=== PATIENT | male | born 1960 | race Caucasian/White ===

== ENCOUNTER 2024-09-07 13:55 | Outpatient (CLI) | payer OTHER, SELFPAY ==
--- NOTE | ~2024-09-07 | XR_ITS ---
XR hand RT min 3V Ordering provider: Aditya Vela, History: . Pain in rt hand, NKI . Comparison: None. FINDINGS: BONES: No acute fracture or dislocation. Minimal subluxation of the first metacarpophalangeal joint i s seen. JOINT SPACES: Osteoarthritic changes of the 6 first metacarpophalangeal joint. SOFT TISSUES: Normal. IMPRESSION: No acute osseous abnormality right hand. Reviewed, dictated and finalized at location A.
--- OUTSIDE RECORDS SUMMARY | 2024-09-07 14:09 | XMS_ITS | Patient Health Record ---
Author Organization [facility] Address [address] [facility] [address] [place] [address] Care Team Providers Care Evaporator Operator Name Role Phone BRUCE QUINTANILLA Unavailable [phone] CYRIL BUSTILLO MD Unavailable Unavailable Reason For Referral No Information Medications Medication SIG (Take, Route, Fr equency, Duration) Notes Start Date End Date Status Naproxen 500 MG 1 tablet Oral Twice a day for 30 days Active Immunizations Vaccine Route Administration Date Status Comme nts Influenza (whole) Unknown 01/17/2018 Refused Influenza (whole) Unknown 03/01/2018 Refused Pneumococcal Unknown 01/17/2018 Refused Pneumococcal Unknown 03/01/2018 Refused Social History Tobacco Use: Social History Observation Description Date Details (start date - stop date) Current Smoker NA - NA Tobacco Use/Smoking Question Answer Notes Patient is a current smoker How often do you smoke cigarettes? every day How many cigarettes a day do you smoke? 6-10 Alcohol Screen Question Answer Notes Did you have a drink contain ing alcohol in the past year? Yes How often did you have a dri nk containing alcohol in the past year? 2 to 4 times a month (2 points) How many drinks did you have on a typical day when you were drinking in the past year? 1 or 2 drinks (0 point) How often did you have 6 or more drinks on one occasion in the past year? Never (0 point) Points 2 Interpretation Negative Problems Problem Type SNOMED Code ICD Code Onset Dates Problem Status W/U Status Risk Notes Problem Osteoarthritis of knee (149337787) Unilateral primary osteoarthritis , left knee (M17.12) Active confirmed Problem Pain in left knee (058576972311148) Pain in left knee (M25.562) Active confirmed Plan Of Treatment No Information Insurance Providers Payer Name Payer Address Payer Phone Subscriber Number Group Number Insured Name Patient Relationship to Insured Coverage Start Date Coverage End Date [facility] [address] [place] [address] [id number] RAY JOAQUIN Self - patient is the insured Medical (General) History Medical History History ICD Code acid reflux
--- OUTSIDE RECORDS SUMMARY | 2024-09-07 14:09 | XMS_ITS | Clinical Summary ---
Author Organization [facility] Address [address] [place] [address] Care Team Providers Care Die Repairer Trimmer Dies Name Role Phone Aditya Vela MD Primary Care Provider Source Comments [facility],non-owned Affiliates and Associated Physician Practices is amultiple site organization consisting of ambulatory clinics and hospital sitesin [place], [place], [place] and [place]. This disclosure is being madepursuant to the Care Everywhere program and may not contain all information available regarding this patient. Last updated 18.[facility] Allergies No known active allergies Medications * Be aware that medications may not be up to date on this document. Alwaysverify current medications with the patient. Medication Sig Dispensed Refills Start Date End Date Status metoprolol tartrate (LOPRESSOR) 25 MG tablet Take 0.5 (one-half) tablet by mouth 2 times daily 30 tablet 06/23/2020 Active Active Problems No known active problems Social History Tobacco Use Types Packs/Day Years Used Date Smoking Tobacco: Every Day Cigarettes Smokeless Tobacco: Never Alcohol Use Standard Drinks/Week Comments Yes 0 (1 standard drink = 0.6 oz pur e alcohol) 2 beers daily Sex and Gender Information Value Date Recorded Sex Assigned at Not on file Gender Identity Not on file Sexual Orientation Not on file Last Filed Vital Signs Vital Sign Reading Time Taken Comments Blood Pressure 150/88 07/15/2020 1:46 PM VACUUM CLEANER REPAIRER Pulse 72 07/15/2020 1:46 PM VACUUM CLEANER REPAIRER Temperature 36.2 C (97.2 F) 07/15/2020 1:46 PM VACUUM CLEANER REPAIRER Respiratory Rate 18 07/15/2020 1:46 PM VACUUM CLEANER REPAIRER Oxygen Saturation 96% 07/15/2020 1:46 PM VACUUM CLEANER REPAIRER Inhaled Oxygen Concentration 21% 06/23/2020 9 :15 PM VACUUM CLEANER REPAIRER Weight 97.9 kg (215 lb 12.8 oz) 07/15/2020 1:46 PM VACUUM CLEANER REPAIRER Height 185.4 cm (6' 1 ) 07/15/2020 1:46 PM VACUUM CLEANER REPAIRER Body Mass Index 28.47 07/15/2020 1:46 PM VACUUM CLEANER REPAIRER Plan of Treatment Health Maintenance Due Date Last Done Comments COLOGUARD (AGES 45-75) - COL ON CA SCREENING 1960 COLON MONITORING 1960 COLONOSCOPY - COLON CA SCREENING 1960 CT COLONOGRAPHY - COLON CA SCREENING 1960 Colorectal Cancer Screening 1960 FIT - COLON CA SCREENING 1960 FLEX SIG - COLON CA SCREENING 1960 LIPID TESTING 1960 DTAP/TDAP/TD VACCINES (1 - Tdap) 1979 PNEUMOCOCCAL VACCINE (1 of 2 - PCV) 1979 PNEUMOCOCCAL VACCINE 50+ (1 of 1 - PCV) 2010 ZOSTER VACCINE (1 of 2) 2010 SCREENING FOR DIABETES 06/23/2023 06/23/2020 COVID-19 VACCINE (1 - 2023-2 5 season) 2024 DEPRESSION SCREENING 05/30/2024 INFLUENZA VACCINE (Season Ended) 2025 Respiratory Syncytial Virus (RSV) Vaccine Pt: or over 60 yrs (1 - 1-dose 75+ series) 2035 HEPATITIS C SCREENING Completed 06/23/2020 , 06/23/2020 HIV SCREENING Completed 06/23/2020 HEPATITIS B VACCINE Aged Out No longe r eligible based on patient's age to complete this topic HIB VACCINE Aged Out No longer eligi ble based on patient's age to complete this topic HPV VACCINE Aged Out No longer eligi ble based on patient's age to complete this topic MENINGOCOCCAL (Group B) VACCINE SHARED DECISION-MAKING Aged Out No longer eligible based on patient's age to complete this topic MENINGOCOCCAL GROUPS A/C/Y/W VACCINE Aged Out No longer eligible b ased on patient's age to complete this topic Procedures Procedure Name Priority Date/Time Associated Diagnosis Comments COMPREHENSIVE METABOLIC PANEL STAT 06/23/2020 5:32 PM VACUUM CLEANER REPAIRER HEPATITIS C AB SCREEN RFLX NAAT QUANT STAT 06/23/2020 5:32 PM VACUUM CLEANER REPAIRER HIV-1 HIV-2 ANTIGEN/ANTIBODY STAT 06/23/2020 5:32 PM VACUUM CLEANER REPAIRER from Last 3 Months or Most Recently Relevant to Health Maintenance Results * HIV-1 HIV-2 ANTIGEN/ANTIBODY (06/23/2020 5:32 PM VACUUM CLEANER REPAIRER) Pathologist [facility] HIV Antigen/Antibod y 1 & 2 Non-reacti ve Non-react stephany 06/23/2020 9:09 PM VACUUM CLEANER REPAIRER [facility] Comment:Neither HIV-1 p24 An tigen nor HIV-1/HIV-2 Antibodies are detected. Blood BLOOD SPECIMEN / Unknown Venipuncture / Unknown 06/23/2020 5:32 PM VACUUM CLEANER REPAIRER 06/23/2020 9:09 PM VACUUM CLEANER REPAIRER Abdi Arenas MD LAB - HEMATOLOGY [place] [address] [address], [facility] [phone] * (ABNORMAL) HEPATITIS C AB SCREEN RFLX NAAT QUANT (06/23/2020 5:32 PM VACUUM CLEANER REPAIRER) Pathologist [facility] Hepatitis C Antibody Reactive( A) Non-react stephany 06/23/2020 9:09 PM VACUUM CLEANER REPAIRER [facility] Comment:Serum for supplement al Hepatitis C quantitative RNA PCR testing will be reflexively sent out by the lab. Blood BLOOD SPECIMEN / Unknown Venipuncture / Unknown 06/23/2020 5:32 PM VACUUM CLEANER REPAIRER 06/23/2020 9:09 PM VACUUM CLEANER REPAIRER Abdi Arenas MD LAB - CHEMISTRY [facility] [address] [place] [address], [facility] [phone] * COMPREHENSIVE METABOLIC PANEL (06/23/2020 5:32 PM [facility]) BUN 9 7 - 26 mg/dL 06/23/2020 6:44 PM [facility] Creatinine 0.9 0.6 - 1.2 mg/dL 06/23/2020 6:44 PM [facility] Sodium 140 136 - 145 mmol/L 06/23/2020 6:44 PM [facility] Potassium 3.9 3.5 - 4.5 mmol/L 06/23/2020 6:44 PM [facility] Chloride 103 98 - 107 mmol/L 06/23/2020 6:44 PM [facility] CO2 25 22 - 29 mmol/L 06/23/2020 6:44 PM [facility] Glucose 100 70 - 115 mg/dL 06/23/2020 6:44 PM [facility] Calcium 8.6 8.4 - 10.2 mg/dL 06/23/2020 6:44 PM [facility] Protein Total 6.8 6.0 - 8.3 g/dL 06/23/2020 6:44 PM [facility] Albumin 3.9 3.4 - 5.0 g/dL 06/23/2020 6:44 PM [facility] Bilirubin Total 0.7 0.2 - 1.2 mg/dL 06/23/2020 6:44 PM [facility] Alkaline Phosphatase 66 40 - 150 Units/L 06/23/2020 6:44 PM [facility] ALT 18 0 - 55 Units/L 06/23/2020 6:44 PM [facility] AST 31 5 - 34 Units/L 06/23/2020 6:44 PM [facility] Anion Gap 16 8 - 18 06/23/2020 6:44 PM [facility] BUN/Creatinine Ratio 10 7 - 23 06/23/2020 6:44 PM [facility] Osmolality Calculated 289 270 - 300 mOsm/kg 06/23/2020 6:44 PM [facility] Albumin/Globulin Ratio 1.3 1.1 - 2.3 06/23/2020 6:44 PM VACUUM CLEANER REPAIRER [facility] eGFR >60 >60 mL/min/1.7 3 m2 06/23/2020 6:44 PM VACUUM CLEANER REPAIRER [facility] Blood BLOOD SPECIMEN / Unknown Venipuncture / Unknown 06/23/2020 5:32 PM VACUUM CLEANER REPAIRER 06/23/2020 5:43 PM VACUUM CLEANER REPAIRER Abdi Arenas MD LAB - CHEMISTRY [facility] Organization Address City/State/ZIP Co de Phone Number [facility] [address] [place] [address], [facility] [phone] from Last 3 Months or Most Recently Relevant to Health Maintenance Care Teams Die Repairer Trimmer Dies Relationship Specialty Start Date End Date Aditya Vela MD PCP - General Internal Medicine 06/23/20
--- OUTSIDE RECORDS SUMMARY | 2024-09-07 14:09 | XMS_ITS | Data Portability ---
Author Organization [facility] [place] Address [address] [facility] [place] [address] Care Team Providers Care Installers Mechanical Name Role Phone ADITYA VELA Primary Care Provider [phone] Assessment Encounter Date Assessment Date Assessment LastModified by Organization Details LastModified Time 02/08/2024 02/08/2024 smoking cessation discussed healthy lifestyle care instructions for overweight discussed Cologuard ordered continue current therapy CBC CMP lipid PSA follow up 6 months. [email or web address] Not available 02/12/2024 16:32:08 Plan of Treatment Reminders Order Date Submit Date Provider Last Modified By Organization Details Last Modified Time Details Appointments ANY 15 2024 11:30A Lisa Vela MD Not available Not available Not available ANY 15 2024 11:30A Lisa Vela MD Not available Not available Not available Lab lipid panel, serum 2023 [facility], [facility] [facility], [place], [address], 02/09/2024 08:33:43 CMP, serum or plasma 2023 024 [facility], [address] [facility], [place], [address], 02/09/2024 08:33:44 CBC w/ auto diff 2023 024 [facility], [address] [facility], [place], [address], 02/09/2024 08:33:45 noninvasi ve colorecta l cancer DNA + occult blood screening , QL, stool 2023 024 [facility] [employer] (Cologuard Orders Only), [address], [place], [address], 08/31/2024 13:16:38 Referral None recorded. Procedures None recorded. Surgeries None recorded. Imaging None recorded. Medication Orders None recorded. Patient TargetsNo targets recorded. Patient Instructions Encounter Date Encounter Id Patient Instructions Last Modified By Organization Details Last Modified Time 02/08/2024 [id number] A healthy lifestyle: care instructions [email or web address] Not available 02/08/2024 18:28:30 Reason for Referral None Reported. Results Created Date Observation Date Name Description Value Unit Range Abnormal Flag Note LastModifiedBy Organization Detail LastModifiedTime 02/08/2002/09/2024 LIPID PANEL cholesterol, total 252 mg/dL 100-19 9 above high normal Not Available [facility] ([facility]) [address] [place], [address], 02/09/2024 08:33:43 02/08/20 24 02/09/2024 LIPID PANEL triglyceride s 137 mg/dL 0-149 Not Available [facility] ([facility]) [address] [place], [address], 02/09/2024 08:33:43 02/08/20 24 02/09/2024 LIPID PANEL HDL cholesterol 46 mg/dL >39 Not Available [facility] ([facility]) [address] [place], [address], 02/09/2024 08:33:43 02/08/20 24 02/09/2024 LIPID PANEL VLDL cholesterol mendez 25 mg/dL 5-40 Not Available [facility] ([facility]) [address] [place], [address], 02/09/2024 08:33:43 02/08/20 24 02/09/2024 LIPID PANEL LDL chol calc ([facility]) 181 mg/dL 0-99 above high normal Not Available [facility] ([facility]) [address], [place], [address], 02/09/2024 08:33:43 02/08/20 24 02/09/2024 COMP. METAB OLIC PANEL (14) glucose 94 mg/dL 70-99 Not Available [facility] ([facility]) [address] [place], [address], 02/09/2024 08:33:44 02/08/20 24 02/09/2024 COMP. METAB OLIC PANEL (14) BUN 12 mg/dL 8-27 Not Available [facility] ([facility]) [address] [place], [address], 02/09/2024 08:33:44 02/08/20 24 02/09/2024 COMP. METAB OLIC PANEL (14) creatinine 0.90 mg/dL 0.76-1 .27 Not Available [facility] ([facility]) [address] [facility], [place], [address], 02/09/2024 08:33:44 02/08/20 24 02/09/2024 COMP. METAB OLIC PANEL (14) eGFR 96 mL/mi n/1.7 3 >59 Not Available [facility] ([facility]) [address] [place], [address], 02/09/2024 08:33:44 02/08/20 24 02/09/2024 COMP. METAB OLIC PANEL (14) BUN/creatini ne ratio 13 10-24 Not Available [facility] ([facility]) [address] [place], [address], 02/09/2024 08:33:44 02/08/20 24 02/09/2024 COMP. METAB OLIC PANEL (14) sodium 141 mmol/ L 134-14 4 Not Available [facility] ([facility]) [address] [place], [address], 02/09/2024 08:33:44 02/08/20 24 02/09/2024 COMP. METAB OLIC PANEL (14) potassium 5.0 mmol/ L 3.5-5. 2 Not Available [facility] ([facility]) [address] [place], [address], 02/09/2024 08:33:44 02/08/20 24 02/09/2024 COMP. METAB OLIC PANEL (14) chloride 101 mmol/ L 96-106 Not Available [facility] ([facility]) [address] [facility], [place], [address], 02/09/2024 08:33:44 02/08/20 24 02/09/2024 COMP. METAB OLIC PANEL (14) carbon dioxide, total 26 mmol/ L 20-29 Not Available [facility] ([facility]) [address] [facility], [place], [address], 02/09/2024 08:33:44 02/08/20 24 02/09/2024 COMP. METAB OLIC PANEL (14) calcium 9.6 mg/dL 8.6-10 .2 Not Available [facility] ([facility]) [address] [facility], [place], [address], 02/09/2024 08:33:44 02/08/20 24 02/09/2024 COMP. METAB OLIC PANEL (14) protein, total 6.8 g/dL 6.0-8. 5 Not Available [facility] ([facility]) [address] [place], [address], 02/09/2024 08:33:44 02/08/20 24 02/09/2024 COMP. METAB OLIC PANEL (14) albumin 4.2 g/dL 3.9-4. 9 Not Available [facility] ([facility]) [address] [facility], [place], [address], 02/09/2024 08:33:44 02/08/20 24 02/09/2024 COMP. METAB OLIC PANEL (14) globulin, total 2.6 g/dL 1.5-4. 5 Not Available [facility] ([facility]) [address] [place], [address], 02/09/2024 08:33:44 02/08/20 24 02/09/2024 COMP. METAB OLIC PANEL (14) bilirubin, total 0.7 mg/dL 0.0-1. 2 Not Available [facility] ([facility]) [address] [facility], [place], [address], 02/09/2024 08:33:44 02/08/20 24 02/09/2024 COMP. METAB OLIC PANEL (14) alkaline phosphatase 62 IU/L 44-121 Not Available [facility] ([facility]) [address] [facility], [place], [address], 02/09/2024 08:33:44 02/08/20 24 02/09/2024 COMP. METAB OLIC PANEL (14) AST (SGOT) 38 IU/L 0-40 Not Available [facility] ([facility]) [address] [place], [address], 02/09/2024 08:33:44 02/08/20 24 02/09/2024 COMP. METAB OLIC PANEL (14) ALT (SGPT) 39 IU/L 0-44 Not Available [facility] ([facility]) [address] [place], [address], 02/09/2024 08:33:44 02/08/20 24 02/09/2024 CBC WITH DIFFE RENTI AL/PL ATELE T WBC 9.3 x10e3 /uL 3.4-10 .8 Not Available [facility] ([facility]) [address] [place], [address], 02/09/2024 08:33:45 02/08/20 24 02/09/2024 CBC WITH DIFFE RENTI AL/PL ATELE T RBC 4.97 x10e6 /uL 4.14-5 .80 Not Available [facility] ([facility]) [address] [place], [address], 02/09/2024 08:33:45 02/08/20 24 02/09/2024 CBC WITH DIFFE RENTI AL/PL ATELE T hemoglobin 17.2 g/dL 13.0-1 7.7 Not Available [facility] ([facility]) [address] [place], [address], 02/09/2024 08:33:45 02/08/2002/09/2024 CBC WITH DIFFE RENTI AL/PL ATELE T hematocrit 51.7 % 37.5-5 1.0 above high normal Not Available [facility] ([facility]) [address] [place], [address], 02/09/2024 08:33:45 02/08/2002/09/2024 CBC WITH DIFFE RENTI AL/PL ATELE T MCV 104 fL 79-97 above high normal Not Available [facility] ([facility]) [address] [place], [address], 02/09/2024 08:33:45 02/08/2002/09/2024 CBC WITH DIFFE RENTI AL/PL ATELE T MCH 34.6 pg 26.6-3 3.0 above high normal Not Available [facility] ([facility]) [address] [place], [address], 02/09/2024 08:33:45 02/08/2002/09/2024 CBC WITH DIFFE RENTI AL/PL ATELE T MCHC 33.3 g/dL 31.5-3 5.7 Not Available [facility] ([facility]) [address] [place], [address], 02/09/2024 08:33:45 02/08/20 24 02/09/2024 CBC WITH DIFFE RENTI AL/PL ATELE T RDW 12.7 % 11.6-1 5.4 Not Available [facility] ([facility]) [address] [facility], [place], [address], 02/09/2024 08:33:45 02/08/20 24 02/09/2024 CBC WITH DIFFE RENTI AL/PL ATELE T platelets 190 x10e3 /uL 150-45 0 Not Available [facility] ([facility]) [address] [facility], [place], [address], 02/09/2024 08:33:45 02/08/20 24 02/09/2024 CBC WITH DIFFE RENTI AL/PL ATELE T neutrophils 61 % notest ab. Not Available [facility] ([facility]) [address] [facility], [place], [address], 02/09/2024 08:33:45 02/08/20 24 02/09/2024 CBC WITH DIFFE RENTI AL/PL ATELE T lymphs 26 % notest ab. Not Available [facility] ([facility]) [address] [facility], [place], [address], 02/09/2024 08:33:45 02/08/20 24 02/09/2024 CBC WITH DIFFE RENTI AL/PL ATELE T monocytes 10 % notest ab. Not Available [facility] ([facility]) [address] [facility], [place], [address], 02/09/2024 08:33:45 02/08/20 24 02/09/2024 CBC WITH DIFFE RENTI AL/PL ATELE T eos 2 % notest ab. Not Available [facility] ([facility]) [address] [facility], [place], [address], 02/09/2024 08:33:45 02/08/20 24 02/09/2024 CBC WITH DIFFE RENTI AL/PL ATELE T basos 1 % notest ab. Not Available [facility] ([facility]) [address] [facility], [place], [address], 02/09/2024 08:33:45 02/08/20 24 02/09/2024 CBC WITH DIFFE RENTI AL/PL ATELE T neutrophils (absolute) 5.5 x10e3 /uL 1.4-7. 0 Not Available [facility] ([facility]) [address] [facility], [place], [address], 02/09/2024 08:33:45 02/08/20 24 02/09/2024 CBC WITH DIFFE RENTI AL/PL ATELE T lymphs (absolute) 2.4 x10e3 /uL 0.7-3. 1 Not Available [facility] ([facility]) [address] [facility], [place], [address], 02/09/2024 08:33:45 02/08/20 24 02/09/2024 CBC WITH DIFFE RENTI AL/PL ATELE T monocytes(ab solute) 0.9 x10e3 /uL 0.1-0. 9 Not Available [facility] ([facility]) [address] [facility], [place], [address], 02/09/2024 08:33:45 02/08/20 24 02/09/2024 CBC WITH DIFFE RENTI AL/PL ATELE T eos (absolute) 0.2 x10e3 /uL 0.0-0. 4 Not Available [facility] ([facility]) [address] [facility], [place], [address], 02/09/2024 08:33:45 02/08/20 24 02/09/2024 CBC WITH DIFFE RENTI AL/PL ATELE T baso (absolute) 0.1 x10e3 /uL 0.0-0. 2 Not Available [facility] ([facility]) [address] [facility], [place], [address], 02/09/2024 08:33:45 02/08/20 24 02/09/2024 CBC WITH DIFFE RENTI AL/PL ATELE T immature granulocytes 0 % notest ab. Not Available [facility] ([facility]) [address] [facility], [place], [address], 02/09/2024 08:33:45 02/08/20 24 02/09/2024 CBC WITH DIFFE RENTI AL/PL ATELE T immature grans (abs) 0.0 x10e3 /uL 0.0-0. 1 Not Available [facility] ([facility]) [address] [facility], [place], [address], 02/09/2024 08:33:45 Result Notes None recorded. Problems Name Problem SNOMED Code Status Onset Date Resolution Date Notes Provider Name and Address Organization Details Recorded Time Overweight 946925464 Active 2023 PATSY Whitehead, [facility] 4 16:17:31 Essential hypertension 12006902 Active 2023 PATSY Whitehead, [facility] 4 16:17:32 Screening for malignant neoplasm of colon [facility] 16:17[facility]33 Problem Notes None recorded. Procedures Surgical History Date Name Laterality Status Provider Name and Address Organization Details Recorded Time 3 hernia repair completed Laxmi Wen MA [facility] 02/08/2024 15:24:42 total knee replacement completed Laxmi Wen MA [facility] 02/08/2024 15:25:26 Imaging Results None recorded. Procedure Notes None recorded. Medical Equipment None Reported. Allergies No known drug allergies Medications Name Sig Start Date Stop Date Status Note LastModified by Organization Details LastModified Time atorvastatin 10 mg tablet Take 1 tablet every day by oral route. 09/07 completed Not Available Not Available Not Available metoprolol succinate ER 50 mg tablet,extend ed release 24 hr TAKE 1 TABLET BY MOUTH EVERY DAY active Not Available Not Available No t Available acetaminophen 300 mg-codeine 15 mg tablet TAKE 1 TABLET EVERY 6 HOURS NEEDED FOR PAIN 09/07 completed Not Available Not Available Not Available amoxicillin 875 mg-potassium clavulanate 125 mg tablet TAKE 1 TABLET BY MOUTH TWICE A DAY FOR 7 DAYS 09/07 completed Not Available Not Available Not Available amlodipine 09/07 completed Not Available Not Available Not Available Vitals Date Recorded Body height Body mass index (BMI) Body weight Heart rate Oxygen saturation Oxygen saturation in Arterial blood by Pulse oximetry Systolic blood pressure Diastolic blood pressure Provider Name and Address Organization Details Last Updated DateTime 4 187.96 cm 27.9 kg/m2 41300.6 2 g 101 /min 97 % 97 % 130 mm[Hg] 90 mm[Hg] Laxmi WenPATSY [facility] 4 15:20:04 Date Recorded Body height Body mass index (BMI) Body weight Heart rate Oxygen saturation Oxygen saturation in Arterial blood by Pulse oximetry Systolic blood pressure Diastolic blood pressure Provider Name and Address Organization Details Last Updated DateTime 5 187.96 cm 28.6 kg/m2 796034. 3 g 83 /min 97 % 97 % 110 mm[Hg] 74 mm[Hg] Laxmi WenPATSY [place] - [facility] 5 12:52:40 Social History Question Answer Notes LastModified by [employer] ion Details LastModified Time Tobacco Smoking Status Current Every Day Smoker Laxmi WenPATSY null, [place] - [facility] 02/08/2024 15:23:41 Are You Blind Or Do You Have Difficulty Seeing? No Information n ot available 02/08/2024 What Is Your Level Of Caffeine Consumption? Moderate Information not available 02/08/2024 In The 14 Days Before Symptom Onset, Have You Had Close Contact With A Laboratory-confirm ed COVID-19 While That Case Was Ill? No Information n ot available 02/08/2024 In The 14 Days Before Symptom Onset, Have You Had Close Contact With A Person Who Is Under Investigation For COVID-19 While That Person Was Ill? No Information not available 02/08/2024 Have You Been To An Area Known To Be High Risk For COVID-19? No Information not available 02/08/2024 Are You Currently Employed? Yes Information not available 02/08/2024 Are You Deaf Or Do You Have Serious Difficulty Hearing? No Information not available 02/08/2024 What Type Of Diet Are You Following? REGULAR Information n ot available 02/08/2024 Are There Any Guns Present In Your Home? No Information not available 02/08/2024 What Was The Date Of Your Most Recent Tobacco Screening? 09/07/2024 Information not available 09/07/2024 What Is Your Current Pack Years? 20-29packyear s Information not available 02/08/2024 Do You Use Your Seat Belt Or Car Seat Routinely? Yes Information not available 02/08/2024 Do You Have Smoke And Carbon Monoxide Detectors In Your Home? Yes Information not available 02/08/2024 How Much Tobacco Do You Smoke? 0.5 PPD Information not available 02/08/2024 Do You Feel Stressed (tense, Restless, Nervous, Or Anxious, Or Unable To Sleep At Night)? GS6361-5 Information not available 02/08/2024 Do You Use Any Illicit Or Recreational Drugs? No Information not available 02/08/2024 Do You Use Sunscreen Routinely? Yes Information not available 02/08/2024 Has Tobacco Cessation Counseling Been Provided? Yes Information not available 02/08/2024 On What Date Was Tobacco Cessation Counseling Provided? 09/07/2024 Information not available 09/07/2024 Do You Or Have You Ever Used Any Other Forms Of Tobacco Or Nicotine? No Information not available 02/08/2024 Sex: Male Functional Status Question Answer Note LastModified by Organization D etails LastModified Time Are you able to care for yourself? Yes Information n ot available 02/08/2024 Mental Status None recorded. Family History Nothing Reported. Medical History Condition Response High Blood Pressure Y Immunizations Vaccine Type Date Status Note Provider Nam e and Address Organization Details Recorded Time Tdap 09/07/2024 completed Richard Heller MA [facility] [place] - [place] 09/07/2024 13:28:56 Past Encounters Encounter ID Performer Location Encounter Start Date Encounter Closed Date Diagnosis/Indication Diagnosis SNOMED-CT Code Diagnosis ICD10 Code Diagnosis Note [id number] MD Antoine Rayo (Adult Med) [address] [place] [address] 02/08/2024 15:02:06 02/08/2024 16:17:49 Overweight 413891751 E66.3 Essential hypertension 01577383 I10 Screening for malignant neoplasm of colon 310809528 Z12.11 [id number] PATSY Whitehead (Adult Med) [address] [place] [address] 09/07/2024 12:30:19 09/07/2024 13:40:42 Body mass index 25-29 - overweight 176875629 Z68.28 Overweight 154390643 E66 .3 Administra tion of diphtheria, pertussis, and tetanus vaccine 632652112 Z23 Pain in right hand 34090 23250 32084 M79.641 Essential hypertension 45075068 I10 Screening for malignant neoplasm of prostate 037659529 Z12.5 Health Concerns Section Related Observation LastModified by Organization Detai ls LastModified Time None Recorded Concern Status LastModified by Organization Details LastModified Time None Recorded Advance Directives Directive None Recorded Payers Encounter Date Sequence Insurance Name Policy Number Policy Tolbert Covered Member ID Tolbert Member ID Guarantor Name 02/08/2024 1 [facility] [id number] Timo Noriega [id number] Timo Noriega Notes Date Note Type Note Provider Name and Address Organization Details Recorded Time 02/08/2024 text/html hypertension no headache no dizziness. continues to smoke Aditya Vela MD Attn: [address] [place], [address], [place] [facility] 02/12/2024 16:32:24
--- OUTSIDE RECORDS SUMMARY | 2024-09-07 14:09 | XMS_ITS | Clinical Summary ---
Author Organization 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 Name Role Phone Unavailable Primary Care Provider Unavailabl e Social History Tobacco Use Types Packs/Day Years Used Date Smoking Tobacco: Never Assessed Sex and Gender Information Value Date Recorded Sex Assigned at Not on file Legal Sex Male 3:09 PM CAVING GUIDE Gender Identity Not on file Sexual Orientation Not on file Plan of Treatment Health Maintenance Due Date Last Done Comments Hepatitis C Virus (HCV) Screening 1960 TdaP Immunization 1960 Colonoscopy 2005 Colorectal Cancer Screening 2005 Cologuard 2010 Immunochemical Fecal Occult Blood 2010 Pneumococcal Immunization (5 0+ years) (1 of 1 - PCV) 2010 Zoster Immunization (1 of 2) 2010 PSA Discussion 2015 Influenza Immunization (#1) 2024 SARS-COV-2 Immunization ( - 2023- season) 2024 Respiratory Syncytial Virus (RSV) Immunization (Adult) (1 - 1-dose 75+ series) 2035 Hepatitis B Immunization Aged Out No longer eligible based on patient's age to complete this topic Meningococcal Immunization (ACWY) Aged Out No longer eligible based on patient's age to complete this topic Pneumococcal Immunization Combined Aged Out No longer eligible based on patient's age to complete this topic Rotavirus Immunization Aged Out No lo nger eligible based on patient's age to complete this topic
--- OUTSIDE RECORDS SUMMARY | 2024-09-07 14:10 | XMS_ITS | Data Portability ---
Author Organization [place] [facility], Main Office Address [address] [place] [address] Care Team Providers Care Ict Security Specialist Name Role Phone CYRIL VELA Primary Care Provider CYRIL VELA Referring Provider Assessment Encounter Date Assessment Date Assessment LastModified by Organization Details LastModified Time 08/26/2022 08/26/2022 incarcerated umbilical hernia. Options discussed with patient. Proceed with repair robotically/ope n. Risks and benefits discussed with patient. Risks include bleeding, infection bowel injuries Not available 08/26/2022 12:29:59 09/21/2022 09/21/2022 Small fluid collection at umbilicus. Recommend f/u in 4-6 weeks. Monitor for signs of infection including increased pain, bleeding, swelling, or drainage. Contact office if concerns arise. Patient agreeable. Not available 09/21/2022 11:47:37 03/31/2023 03/31/2023 Continue current therapy Lipitor 10 mg daily Keflex 500 t.i.d. for the finger x-ray the finger follow-up in 4 months of follow-up sooner if his finger is not completely resolved [email or web address] Not available 04/09/2023 13:30:54 Plan of Treatment Reminders Order Date Submit Date Provider Last Modified By Organization Details Last Modified Time Details Appointments None recorded. Lab None recorded. Referral None recorded. Procedures None recorded. Surgeries None recorded. Imaging XR, finger(s) 023 023 [email or web address] Not available 3 10:33:11 Medication Orders Keflex 500 mg capsule 023 023 [facility]/Pharmacy #[id number], [address], [place], [address], 13:29:21 Lipitor 10 mg tablet 023 023 [email or web address] [facility]/Pharmacy #[id number], [address], [place], [address], 14:56:38 Patient TargetsNo targets recorded. Patient InstructionsNo instructions recorded. Reason for Referral None Reported. Results Created Date Observation Date Name Description Value Unit Range Abnormal Flag Note LastModifiedBy Organization Detail LastModifiedTime 03/22/2003/22/2023 CBC/C OMPLE TE BLD COUNT W/DIF F white blood cells 8.2 x10'3 /uL 4.2-10 .8 Not Available [facility] (Lab) [address] [place], [address], 03/22/2023 18:03:04 03/22/2003/22/2023 CBC/C OMPLE TE BLD COUNT W/DIF F red blood cells 4.67 x10'6 /uL 4.10-5 .80 Not Available [facility] (Lab) [address] [place], [address], 03/22/2023 18:03:04 03/22/2003/22/2023 CBC/C OMPLE TE BLD COUNT W/DIF F hemoglobin 15.9 g/dL 13.2-1 7.0 Not Available [facility] (Lab) [address] [place], [address], 03/22/2023 18:03:04 03/22/2003/22/2023 CBC/C OMPLE TE BLD COUNT W/DIF F hematocrit 46.2 % 39.3-5 0.0 Not Available [facility] (Lab) [address] [place], [address], 03/22/2023 18:03:04 03/22/20 23 03/22/2023 CBC/C OMPLE TE BLD COUNT W/DIF F mean red cell volume 98.9 fL 80.0-9 7.0 high Not Available [facility] (Lab) [address] [place], [address], 03/22/2023 18:03:04 03/22/2003/22/2023 CBC/C OMPLE TE BLD COUNT W/DIF F mean red cell hemoglobin 34.0 pg 27.0-3 3.0 high Not Available [facility] (Lab) [address] [place], [address], 03/22/2023 18:03:04 03/22/2003/22/2023 CBC/C OMPLE TE BLD COUNT W/DIF F mean RBC HGB concentratio n 34.4 g/dL 31.0-3 6.0 Not Available [facility] (Lab) [address] [place], [address], 03/22/2023 18:03:04 03/22/2003/22/2023 CBC/C OMPLE TE BLD COUNT W/DIF F red cell distribution width 12.9 % 11.8-1 5.5 Not Available [facility] (Lab) [address] [place], [address], 03/22/2023 18:03:04 03/22/2003/22/2023 CBC/C OMPLE TE BLD COUNT W/DIF F platelets 188 x10'3 /uL 150-40 0 Not Available [facility] (Lab) [address] [place], [address], 03/22/2023 18:03:04 03/22/2003/22/2023 CBC/C OMPLE TE BLD COUNT W/DIF F mean platelet volume 11.0 fL 9.0-12 .4 Not Available [facility] (Lab) [address] [place], [address], 03/22/2023 18:03:04 03/22/2003/22/2023 CBC/C OMPLE TE BLD COUNT W/DIF F neutrophils 53.2 % 39.0-7 2.0 Not Available [facility] (Lab) [address] [place], [address], 03/22/2023 18:03:04 03/22/2003/22/2023 CBC/C OMPLE TE BLD COUNT W/DIF F lymphocytes 32.4 % 16.0-4 7.0 Not Available [facility] (Lab) [address] [place], [address], 03/22/2023 18:03:04 03/22/2003/22/2023 CBC/C OMPLE TE BLD COUNT W/DIF F monocytes 10.5 % 5.0-12 .0 Not Available [facility] (Lab) [address] [place], [address], 03/22/2023 18:03:04 03/22/2003/22/2023 CBC/C OMPLE TE BLD COUNT W/DIF F eosinophils 2.4 % 1.0-7. 0 Not Available [facility] (Lab) [address] [place], [address], 03/22/2023 18:03:04 03/22/2003/22/2023 CBC/C OMPLE TE BLD COUNT W/DIF F basophils 1.3 % 0.0-2. 0 Not Available [facility] (Lab) [address] [place], [address], 03/22/2023 18:03:04 03/22/2003/22/2023 CBC/C OMPLE TE BLD COUNT W/DIF F immature granulocytes 0.2 % 0.00-0 .50 Not Available [facility] (Lab) [address] [place], [address], 03/22/2023 18:03:04 03/22/2003/2203/22/2023 CBC/C OMPLE TE BLD COUNT W/DIF F neutrophils, absolute count 4.33 x10'3 /uL 1.5-8. 0 Not Available [facility] (Lab) [address] [facility], [address], 03/22/2023 18:03:04 03/22/20 23 03/22/2023 CBC/C OMPLE TE BLD COUNT W/DIF F lymphocytes, absolute count 2.65 x10'3 /uL 1.07-3 .43 Not Available [facility] (Lab) [address] [facility] [place], [address], 03/22/2023 18:03:04 03/22/2003/22/2023 CBC/C OMPLE TE BLD COUNT W/DIF F monocytes, absolute count 0.86 x10'3 /uL 0.29-0 .99 Not Available [facility] (Lab) [address] [place], [address], 03/22/2023 18:03:04 03/22/2003/22/2023 CBC/C OMPLE TE BLD COUNT W/DIF F eosinophils, absolute count 0.20 x10'3 /uL 0.02-0 .53 Not Available [facility] (Lab) [address] [place], [address], 03/22/2023 18:03:04 03/22/2003/22/2023 CBC/C OMPLE TE BLD COUNT W/DIF F basophils, absolute count 0.11 x10'3 /uL 0.01-0 .08 high Not Available [facility] (Lab) [address] [place], [address], 03/22/2023 18:03:04 03/22/20 23 03/22/2023 CBC/C OMPLE TE BLD COUNT W/DIF F immature granulocytes ,absolute 0.02 x10'3 /uL 0.00-0 .05 Not Available [facility] (Lab) [address] [place], [address], 03/22/2023 18:03:04 03/22/2003/22/2023 CBC/C OMPLE TE BLD COUNT W/DIF F nucleated red blood cells 0.0 % -0 Not Available [facility] (Lab) [address] [place], [address], 03/22/2023 18:03:04 03/22/2003/22/2023 CBC/C OMPLE TE BLD COUNT W/DIF F NRBC# 0.00 x10'3 /uL Not Available [facility] (Lab) [address] [place], [address], 03/22/2023 18:03:04 03/22/2003/22/2023 LIPID PANEL cholesterol 233 mg/dL 140-19 9 high NIH PEDRO LUIS NSUS RECOM MENDA TION FOR MARIA A STERO L: ADULT CHILD LOW RISK: <200 <170 BORDE RLINE : <200- 239 ----- HIGH RISK: >240 >200 Not Available [facility] (Lab) [address] [place], [address], 03/22/2023 19:05:53 03/22/2003/22/2023 LIPID PANEL triglyceride s 310 mg/dL 0-150 high NIH PEDRO LUIS NSUS REPOR T RECOM MENDA TION FOR TRIGL YCERI DOLORES: ADULT CHILD LOW RISK: <150 ----- BODER LINE: 150-1 99 ----- HIGH RISK: >200 ----- Not Available [facility] (Lab) [address] [place], [address], 03/22/2023 19:05:53 03/22/2003/22/2023 LIPID PANEL HDL cholesterol 34 mg/dL 40- low Not Available [facility] (Lab) [address] [place], [address], 03/22/2023 19:05:53 03/22/2003/22/2023 LIPID PANEL LDL cholesterol, calculated 137 mg/dL 0-130 high NIH PEDRO LUIS NSUS REPOR T RECOM MENDA TIONS FOR LDL: ADULT CHILD LOW RISK <130 <110 (OPTI MAL LDL) <100 ----- BORDE RLINE : 130-1 59 ----- HIGH RISK: >160 >130 A TRIGL YCERI DE RESUL T >400 INVAL IDATE S THE CALCU LATIO N FOR LDL FRACT IONAT ION - THE LDL RESUL T WILL NOT BE REPOR CONCHA. Not Available [facility] (Lab) [address] [place], [address], 03/22/2023 19:05:53 03/22/2003/22/2023 COMPR EHENS GIUSEPPE METAB OLIC PANEL sodium 135 mmol/ L 137-14 5 low Not Available [facility] (Lab) [address] [place], [address], 03/22/2023 19:06:04 03/22/2003/22/2023 COMPR EHENS GIUSEPPE METAB OLIC PANEL potassium 3.8 mmol/ L 3.5-5. 1 Not Available [facility] (Lab) [address] [place], [address], 03/22/2023 19:06:04 03/22/20 23 03/22/2023 COMPR EHENS GIUSEPPE METAB OLIC PANEL chloride 103 mmol/ L 98-107 Not Available [facility] (Lab) [address] [place], [address], 03/22/2023 19:06:04 03/22/20 23 03/22/2023 COMPR EHENS GIUSEPPE METAB OLIC PANEL carbon dioxide 26 mmol/ L 22-30 Not Available [facility] (Lab) [address] [place], [address], 03/22/2023 19:06:04 03/22/20 23 03/22/2023 COMPR EHENS GIUSEPPE METAB OLIC PANEL anion gap 9.8 mmol/ L 14-22 low Not Available [facility] (Lab) [address] [place], [address], 03/22/2023 19:06:04 03/22/20 23 03/22/2023 COMPR EHENS GIUSEPPE METAB OLIC PANEL glucose 113 mg/dL 70-99 high Not Available [facility] (Lab) [address] [place], [address], 03/22/2023 19:06:04 03/22/20 23 03/22/2023 COMPR EHENS GIUSEPPE METAB OLIC PANEL BUN 15 mg/dL 8-19 Not Available [facility] (Lab) [address] [place], [address], 03/22/2023 19:06:04 03/22/20 23 03/22/2023 COMPR EHENS GIUSEPPE METAB OLIC PANEL creatinine 0.98 mg/dL 0.66-1 .25 Not Available [facility] (Lab) [address] [place], [address], 03/22/2023 19:06:04 03/22/2003/22/2023 COMPR EHENS GIUSEPPE METAB OLIC PANEL GFR >60 Refer ence Range : [place] ge GFR Healt hy Adult : >60 mL/mi n/1.7 3 m2 Chron ic Kidne y Disea se: 15-60 mL/mi n/1.7 3 m2 Kidne y Failu re: <15/m L/min /1.73 m2 www.n iddk. nih.g ov The MDRD study equat ion has not been valid ated in child carlee <18 years of age; pregn ant women ; the elder ly >85 years of age; or in some racia l or ethni c subgr oups, such as Hispa nics. Outsi de the valid ated desiree eters , estim ated GFR is less accur ate, requi ring clini mendez judgm ent on a case- by-ca se basis . Clini mendez inter preta tion for other races and ages must be made by the clini michelle. The MDRD study equat ion has not been valid ated for the evalu ation of serum creat inine relat ed to nutri george l statu s or medic ation usage . For perso ns <18 years of age, a pedia tric GFR calcu lator is avail able on the F websi te: https ://diana w.emanuel solanoy.o rg/pr ofess ional s/kdo qi/gf r_cal culat or Not Available [facility] (Lab) [address] [place], [address], 03/22/2023 19:06:04 03/22/2003/22/2023 COMPR EHENS GIUSEPPE METAB OLIC PANEL alkaline phosphatase 59 U/L 38-126 Not Available [facility] (Lab) [address] [place], [address], 03/22/2023 19:06:04 03/22/2003/22/2023 COMPR EHENS GIUSEPPE METAB OLIC PANEL alanine aminotransfe rase 25 U/L 0-50 Not Available [facility] (Lab) [address] [place], [address], 03/22/2023 19:06:04 03/22/2003/22/2023 COMPR EHENS GIUSEPPE METAB OLIC PANEL aspartate aminotransfe rase 41 U/L 15-46 Not Available [facility] (Lab) [address] [place], [address], 03/22/2023 19:06:04 03/22/2003/22/2023 COMPR EHENS GIUSEPPE METAB OLIC PANEL bilirubin, total 0.40 mg/dL 0.20-1 .30 Not Available [facility] (Lab) [address] [place], [address], 03/22/2023 19:06:04 03/22/20 23 03/22/2023 COMPR EHENS GIUSEPPE METAB OLIC PANEL calcium 9.5 mg/dL 8.4-10 .2 Not Available [facility] (Lab) [address] [place], [address], 03/22/2023 19:06:04 03/22/20 23 03/22/2023 COMPR EHENS GIUSEPPE METAB OLIC PANEL total protein 7.5 g/dL 6.3-8. 2 Not Available [facility] (Lab) [address] [place], [address], 03/22/2023 19:06:04 03/22/20 23 03/22/2023 COMPR EHENS GIUSEPPE METAB OLIC PANEL albumin 4.1 g/dL 3.4-5. 0 Not Available [facility] (Lab) [address] [place], [address], 03/22/2023 19:06:04 03/22/20 23 03/22/2023 COMPR EHENS GIUSEPPE METAB OLIC PANEL globulin 3.4 g/dL 2.6-4. 2 Not Available [facility] (Lab) [address] [place], [address], 03/22/2023 19:06:04 03/22/2003/22/2023 COMPR EHENS GIUSEPPE METAB OLIC PANEL A/G ratio 1.2 ratio 1.0-2. 0 Not Available [facility] (Lab) [address] [place], [address], 03/22/2023 19:06:04 03/22/2003/22/2023 PSA, TOTAL PSA, total 0.66 NG/mL 0.00-4 .00 Not Available [facility] (Lab) [address] [place], [address], 03/22/2023 19:18:27 03/22/20 23 03/22/2023 PSA SCREE N PSA medicare screen 0.66 NG/mL 0.00-4 .00 Not Available [facility] (Lab) [address] [place], [address], 03/22/2023 19:44:19 01/25/20 23 01/24/2023 pawan r monit or No observ ation record ed. [email or web address] [facility] [address], [place], [address], 03/31/2023 14:38:18 02/05/20 23 02/04/2023 , echoc ardio gram No observ ation record ed. [email or web address] [facility] [address], [place], [address], 03/31/2023 14:39:24 03/31/20 23 XR, finge r(s) [facility] [address], [place] [address] Patien t Name: TIMO JOAQUIN [facility] ion #: [id number] Sex: M : 1960 7 Dictat ed By: Westley Rasheed Attend ing Physic missy: FREDDY VELA Orderi ng Physic missy: FREDDY VELA Exam Date: Exam Name: XR FINGER (S) LT 2V Admitt ing Diagno sis(es ): Left second digit radiog raph CLINIC AL INDICA TION: Pain TECHNI QUE: Single radiog raphic views of the left second digit were obtain ed. Compar tree: FINDIN GS: There is no eviden ce of acute fractu re or disloc ation. The visual ized joint space is well mainta ined. The alignm ent is anatom ical. No acute fractu re or disloc ation. No radiop aque foreig n body. Stryker ing soft tissue swelli ng is noted. IMPRES GISELA: No acute fractu re or disloc ation. No radiop aque foreig n body. Stryker ing soft tissue swelli ng is noted. Electr onical ly Signed by: Westley Rasheed at 2022 14:56: 36 PM Page 1 [email or web address] [facility] (Imaging) [address] [facility], [place], [address], 05/16/2023 14:12:12 Result Notes None recorded. Problems Name Problem SNOMED Code Status Onset Date Resolution Date Notes Provider Name and Address Organization Details Recorded Time History of total knee arthroplas ty 5091587641040 Active 2018 Not Available [facility] 3 14:49:25 Osteoarthr itis of knee 794993441 Active 2018 Not Available [facility] 3 14:49:25 Low back pain 327278188 Active 2021 Not Available [facility] 3 14:49:26 Dyslipidem ia 095251713 Active 2016 Not Available [facility] 3 14:49:26 Osteoarthr itis 278558717 Active Not Available [facility] 3 14:49:26 Umbilical hernia 020954404 Active 2022 Not Available [facility] 3 14:49:26 Chronic atrial fibrillati on 071683042 Active 2016 Not Available [facility] 3 14:49:26 Anxiety 32132903 Active 2021 Not Available [facility] 3 14:49:26 Atrial flutter 7345145 Active 2021 Not Available [facility] 3 14:49:26 Pain in finger of left hand 4361193623464 05 Active 2022 [facility], [facility] 3 14:27:36 Problem Notes None recorded. Procedures Surgical History Date Name Laterality Status Provider Name and Address Organization Details Recorded Time 09/14/19 23 Hernia Surgery completed Charo Martinez MA [place] [email or web address] 09/20/2022 15:14:45 02/22/20 19 total knee replacement completed Not Available [facility] 07/28/2022 14:45:34 Imaging Results Imaging Date Name Status LastModified by Organization Details LastModified Time 01/24/2023 holter monitor completed [email or web address] [facility] [address], [place], [address], 03/31/2023 14:38:18 02/04/2023 US, echocardiogram completed [email or web address] [facility] [address], [place], [address], 03/31/2023 14:39:24 03/31/2023 XR, finger(s) completed [facility] [email or web address] [facility] ([facility]) [address] [place], [address], 05/16/2023 14:12:12 Procedure Notes None recorded. Medical Equipment None Reported. Allergies No known drug allergies Medications Name Sig Start Date Stop Date Status Note LastModified by Organization Details LastModified Time amoxicillin 500 mg capsule TAKE 1 CAPSULE BY MOUTH THREE TIMES A DAY UNTIL GONE 12/01 completed Not Available Not Available Not Available atorvastati n 10 mg tablet TAKE 1 TABLET BY MOUTH EVERY DAY active Not Available Not Available No t Available metoprolol succinate ER 50 mg tablet,exte nded release 24 hr TAKE 1 TABLET BY MOUTH EVERY DAY active Not Available Not Available No t Available hydrocodone 5 mg-acetamin ophen 325 mg tablet Take 1 tablet every 6 hours by oral route. active Not Available Not Available No t Available Keflex 500 mg capsule Take 1 capsule 3 times a day by oral route for 7 days. 2022 active Not Available Not Available Not Avai lable sulfamethox azole 800 mg-trimetho prim 160 mg tablet TAKE 1 TABLET BY MOUTH TWICE A DAY 03/31 completed Not Available Not Available Not Available tramadol 50 mg tablet TAKE 1 TABLET BY MOUTH THREE TIMES A DAY NEEDED active Not Available Not Available No t Available carvedilol 3.125 mg tablet Take 1 tablet twice a day by oral route. 01/20 completed Not Available Not Available Not Available oxycodone-a cetaminophe n 5 mg-325 mg tablet TAKE 1 TABLET BY MOUTH EVERY 4 TO 6 HOURS NEEDED 03/31 completed Not Available Not Available Not Available hydrocodone 7.5 mg-acetamin ophen 325 mg tablet 06/08 completed Not Available Not Available Not Available diclofenac sodium 75 mg tablet,lisbet yed release Take 1 tablet twice a day by oral route as needed. active Not Available Not Available No t Available methylpredn isolone 4 mg tablets in a dose pack TAKE 6 TABLETS ON DAY 1 DIRECTED ON PACKAGE AND DECREASE BY 1 TAB EACH DAY FOR A TOTAL OF 6 DAYS 09/02 completed Not Available Not Available Not Available naproxen 500 mg tablet TAKE 1 TABLET BY MOUTH TWICE A DAY WITH FOOD 09/02 completed Not Available Not Available Not Available diazepam 5 mg tablet TAKE 1 TAB BY MOUTH 45 MINUTES PRIOR TO TESTING. MUST HAVE SOMEONE DRIVE YOU HOME 06/07 completed Not Available Not Available Not Available cyclobenzap rine 5 mg tablet 09/16 completed Not Available Not Available Not Available metoprolol tartrate 25 mg tablet 06/08 completed Not Available Not Available Not Available Xarelto 20 mg tablet 06/08 completed Not Available Not Available Not Available Eliquis 5 mg tablet Take 1 tablet twice a day by oral route. 12/29 completed pt says has n Not Available Not Available Not Available Vitals Date Recorded Body mass index (BMI) Body height Heart rate Body temperature Body weight Systolic blood pressure Diastolic blood pressure Provider Name and Address Organization Details Last Updated DateTime 3 29.9 kg/m2 185.42 cm 100 /min 98.3 [degF] 503517. 47 g 114 mm[Hg] 74 mm[Hg] Not Available [facility] 3 14:48:46 Date Recorded Body mass index (BMI) Body height Oxygen saturation Oxygen saturation in Arterial blood by Pulse oximetry Heart rate Respiratory rate Body temperature Body weight Systolic blood pressure Diastolic blood pressure Provider Name and Address Organization Details Last Updated DateTime 3 29.9 kg/m2 185.42 cm 98 % 98 % 88 /min 16 /min 97.5 [degF] 577563. 47 g 120 mm[Hg] 80 mm[Hg] Not Available [facility] 3 14:48:47 Date Recorded Body height Body mass index (BMI) Body weight Body temperature Heart rate Respiratory rate Oxygen saturation Oxygen saturation in Arterial blood by Pulse oximetry Systolic blood pressure Diastolic blood pressure Provider Name and Address Organization Details Last Updated DateTime 3 185.42 cm 29.9 kg/m2 790648. 47 g 97.5 [degF] 88 /min 16 /min 97 % 97 % 120 mm[Hg] 80 mm[Hg] Mandi Do [place] [facility] 3 12:17:14 Date Recorded Body height Body mass index (BMI) Body weight Body temperature Heart rate Respiratory rate Oxygen saturation Oxygen saturation in Arterial blood by Pulse oximetry Systolic blood pressure Diastolic blood pressure Provider Name and Address Organization Details Last Updated DateTime 3 185.42 cm 29.9 kg/m2 864773. 47 g 97.5 [degF] 88 /min 16 /min 97 % 97 % 120 mm[Hg] 80 mm[Hg] Mandi Do [employer] 3 11:34:24 Date Recorded Body height Body mass index (BMI) Body weight Body temperature Heart rate Systolic blood pressure Diastolic blood pressure Provider Name and Address Organization Details Last Updated DateTime 3 185.42 cm 29.8 kg/m2 730981. 88 g 98 [degF] 89 /min 128 mm[Hg] 80 mm[Hg] Yeni pratt RN [facility] 3 13:58:27 Social History Question Answer Notes LastModified by Organizat ion Details LastModified Time Tobacco Smoking Status Current Every Day Smoker Not Available [facility] 07/28/2022 14:45:27 Do You Have An Advance Directive? No [id number] Information not available 07/28/2022 What Is Your Level Of Alcohol Consumption? Occasional 2 Beers/da y [id number] Information not available 07/28/2022 What Is Your Level Of Caffeine Consumption? Moderate [id number] Information not available 07/28/2022 In The 14 Days Before Symptom Onset, Have You Had Close Contact With A Laboratory-confi rmed COVID-19 While That Case Was Ill? No [id number] Information not available 07/28/2022 In The 14 Days Before Symptom Onset, Have You Had Close Contact With A Person Who Is Under Investigation For COVID-19 While That Person Was Ill? No [id number] Information not available 07/28/2022 What Type Of Diet Are You Following? REGULAR [id number] Information not available 07/28/2022 What Is The Highest Grade Or Level Of School You Have Completed Or The Highest Degree You Have Received? 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 No [id number] Information not available 07/28/2022 What Is The Fluoride Status Of Your Home? Unknown [id number] Information not available 07/28/2022 Are There Any Guns Present In Your Home? No [id number] Information not available 07/28/2022 Do You Use Insect Repellent Routinely? No [id number] Information not available 07/28/2022 Where Do You Live? [facility] [id number] Information not available 07/28/2022 Do You Have A Medical Power Of Curer Foam Rubber? No [id number] Information not available 07/28/2022 What Was The Date Of Your Most Recent Tobacco Screening? 03/31/2023 [email or web address] Information not available 03/31/2023 What Is Your Current Pack Years? 20-29packyears [id number].[id number] Information not available 07/28/2022 Have You Ever Been Counseled For Unhealthy Alcohol Use? No [id number] Information not available 07/28/2022 Do You Have Any Pets? Yes [id number] Information not available 07/28/2022 What Is Your Relationship Status? [id number].[id number] Information not available 07/28/2022 Do You Use Your Seat Belt Or Car Seat Routinely? Yes [id number] Information not available 07/28/2022 Do You Have Smoke And Carbon Monoxide Detectors In Your Home? Yes [id number] Information not available 07/28/2022 At What Age Did You Start Smoking Tobacco? 25 MIGRATION.52821 33883 Information not available 07/28/2022 Are You Passively Exposed To Smoke? Yes MIGRATION.81009 10072 Information not available 07/28/2022 Are There Any Smokers In Your House? Yes MIGRATION.92451 40353 Information not available 07/28/2022 How Much Tobacco Do You Smoke? 0.5 PPD MIGRATION.61672 68439 Information not available 07/28/2022 What Types Of Sporting Activities Do You Participate In? Golf MIGRATION.57043 40634 Information not available 07/28/2022 Do You Feel Stressed (tense, Restless, Nervous, Or Anxious, Or Unable To Sleep At Night)? [id number] MIGRATION.80115 81255 Information not available 07/28/2022 Do You Use Any Illicit Or Recreational Drugs? No MIGRATION.00240 52664 Information not available 07/28/2022 Do You Use Sunscreen Routinely? Yes MIGRATION.09835 37299 Information not available 07/28/2022 Has Tobacco Cessation Counseling Been Provided? Yes MIGRATION.47914 25717 Information not available 07/28/2022 On What Date Was Tobacco Cessation Counseling Provided? 02/08/2022 MIGRATION.82046 89303 Information not available 07/28/2022 How Many Years Have You Smoked Tobacco? 30 MIGRATION.60417 15259 Information not available 07/28/2022 Have You Recently Traveled Abroad? No MIGRATION.39010 44400 Information not available 07/28/2022 Do You Have Any Dietary Restrictions? No MIGRATION.89182 05333 Information not available 07/28/2022 Do You Or Have You Ever Used Any Other Forms Of Tobacco Or Nicotine? No MIGRATION.21891 24193 Information not available 07/28/2022 Sex: Male Functional Status Question Answer Note LastModified by Organizat ion Details LastModified Time What is your exercise level? Occasional [id number] Information not available 07/28/2022 Mental Status None recorded. Family History Relationship Description Onset Age of this Age Resolved Age Notes LastModified by Organization Details LastModified Time Mother General health good [id number] Not available 07/28/2022 14:45:36 Father Congestive heart failure 69 MIGRATION.020 [id number] Not available 07/28/2022 14:45:37 Medical History Condition Response BLINDNESS N NERVE DISEASE N RHEUMATIC FEVER N BLADDER PROBLEMS N KIDNEY STONES N MRSA N OTHER # 1 N POLIO N LUNG DISEASE/DISORDER N HISTORY OF DRUG ABUSE N RADIATION / CHEMOTHERAPY N COPD N Other # 2 N BLOOD DISEASES N EAR OR HEARING PROBLEMS N MUMPS N SHINGLES N BOWEL PROBLEMS N DEPRESSION (INCLUDING POST ) N STROKE/TIA N ULCERS N BENIGN PROSTATIC HYPERPLASIA N MEASLES N HYPOTENSION N MYOCARDIAL INFARCTION N OBESITY N GERD/NAUSEA N ANEURYSM N URINARY/BLADDER/KIDNEY PROBLEMS N CORONARY ARTERY DISEASE (CAD) N ADDICTION CONCERNS N ENDOMETRIOSIS N Impotence N USE OF BLOOD THINNERS N SKIN PROBLEMS N GASTROINTESTINAL DISORDER N PERIPHERAL VASCULAR DISEASE N MUSCLE,JOINT OR BONE PROBLEMS N GASTROINTESTINAL BLEEDING N BLOOD CLOTS N ASTHMA N CATARACTS N ERECTILE DYSFUNCTION N VARICOSITIES N GI PROBLEMS N Low Testosterone N INFERTILITY N AIDS/HIV N CHEMOTHERAPY / RADIATION N LIVER DISEASE N MALE HYPOGONADISM N HYPERTENSION N Deficiency N TOURETTE'S N ANXIETY DISORDER N BLOOD TRANSFUSION N ANEMIA/BLOOD DISORDER N CHRONIC EAR INFECTIONS N BRONCHITIS N TUBERCULOSIS N GLAUCOMA N FOOT PROBLEM N DIVERTICULITIS N CHICKENPOX N SLEEP APNEA N INFECTIOUS DISEASE N HEART ARRHYTHMIA N PROSTATE N INSOMNIA N HIGH CHOLESTEROL / HYPERLIPIDEMIA Y HYPERTHYROIDISM N EYE PROBLEMS N EDEMA N CHRONIC PAIN SYNDROME N HYPOTHYROIDISM N CAROTID BLOCKAGE N CONSTIPATION N BACK / NECK PROBLEMS N HAVE YOU BEEN HOSPITALIZED OR SEEN IN [facility] ER IN THE PAST YEAR ? N ATHEROSCLEROSIS N BREAST PROBLEMS N DIALYSIS N ECZEMA N OSTEOPOROSIS N ARTHRITIS Y APPENDICITIS N DIABETES, TYPE N BAD TEETH N ENT N HEARTBURN / REFLUX N AUTISM SPECTRUM DISORDER (ASD) N HEPATITIS / LIVER DISEASE N GOUT N SLEEP DISORDER N ALZHEIMER'S DISEASE N Brain Problems N HERPES N DEMENTIA N HEADACHES/MIGRAINES N SEIZURES/EPILEPSY N VASCULAR DISEASE N PACEMAKER N Blood Disorder N DIZZINESS N HEART DISEASE/HEART PROBLEMS N KIDNEY DISEASE N MULTIPLE SCLEROSIS N CARDIAC ARRHYTHMIA N CANCER: SPECIFY N ATRIAL FIBRILLATION Y Gall Stones N PULMONARY EMBOLISM N AUTOIMMUNE DISEASE N Immunizations Vaccine Type Date Status Note Provider Nam e and Address Organization Details Recorded Time COVID-19, mRNA, LNP-S, PF, 100 mcg/0.5mL dose or 50 mcg/0.25mL dose 06/20/2021 completed Not Available [facility] 3 14:52:50 COVID-19, mRNA, LNP-S, PF, 100 mcg/0.5mL dose or 50 mcg/0.25mL dose 05/20/2021 completed Not Available [facility] 3 14:52:50 Past Encounters Encounter ID Performer Location Encounter Start Date Encounter Closed Date Diagnosis/Indication Diagnosis SNOMED-CT Code Diagnosis ICD10 Code Diagnosis Note [id number] [facility] Internal Med [place] [address] [facility], [place] [address] [place] [address] 09/02/2021 00:00:00 09/02/2021 21:55:15 [id number] [facility] [place] [address] [facility] [address] [place] [address] 09/08/2021 00:00:00 09/08/2021 16:08:31 [id number] [facility] Med [facility] [address] [facility] [address] [place] [address] 09/16/2021 00:00:00 09/16/2021 21:50:59 [id number] [facility] Internal Med [facility] [address] [facility] [address] [place] [address] 10/09/2021 00:00:00 11/08/2021 12:04:10 [id number] [facility] Internal Med [facility] [address] [place], [place] [address]., [facility] [address] [place] [address] 12/29/2021 00:00:00 01/11/2022 18:13:11 [id number] [facility] Internal Med [facility] [address] [place], [place] [address]., [address] [address] 02/08/2022 00:00:00 02/08/2022 21:49:29 [id number] [facility] Internal Med [address] [address] 06/07/2022 00:00:00 06/08/2022 08:47:34 [id number] [facility] General Surgery [address] [place], [place] [address]., [address] [address] 06/24/2022 00:00:00 06/24/2022 13:33:04 [id number] Parminder lee MD [facility] General Surgery [address] [place], [place] [address]., [address] [address] 08/26/2022 11:54:08 08/26/2022 12:30:24 Umbilical hernia [id number] K42.9 [id number] Parminder lee MD [facility] General Surgery [address] [place], [place] [address]., [address] [address] 09/21/2022 10:54:34 09/21/2022 11:56:05 [id number] Cyril Vela MD [facility] Internal Med [place] [address] [facility] , [place] [address] 03/31/2023 13:50:22 03/31/2023 14:27:16 Pain in finger of left hand [id number] 42491 M79.645 Dyslipidemia [id number] E 78.5 Osteoarthritis [id number] M19.90 Health Concerns Section Related Observation LastModified by Organization Detai ls LastModified Time None Recorded Concern Status LastModified by Organization Details LastModified Time None Recorded Advance Directives Directive N: Payers Encounter Date Sequence Insurance Name Policy Number Policy Tolbert Covered Member ID Tolbert Member ID Guarantor Name 08/26/2022 1 [id number] PLUS [id number] Timo Joaquin [id number] Timo Joaquin 09/21/2022 1 [employer] PLUS [id number] Timo Joaquin [id number] Timo Joaquin 03/31/2023 1 [employer] PLUS [id number] Timo Joaquin [id number] Timo Joaquin Notes Date Note Type Note Provider Name and Address Organization Details Recorded Time 3 text/html Patient following up for incarcerated umbilical hernia. Scheduled for surgery in 3 weeks. No changes in health still with soreness around the center of the abdomen. No fevers chills no nausea vomiting or any other constitutional symptoms Parminder Hamilton MD [address] [facility] [place], [address], [facility] [employer] 08/26/2022 13:26:26 3 text/html Patient following up after hernia repair last week. Doing well. Regular appetite and regular bowel movements. No fevers. No drainage. Small bump at umbilicus since surgery. Parminder Hamilton MD [address], [place], [address], [facility] [employer] 09/21/2022 11:47:41 3 text/html Left index finger little red and swollenDyslipidemia and he needs to follow up with LipitorOsteoarthritis stable Cyril Vela MD [address] [facility], [facility] [address], [place], [address], [place] [facility] 04/09/2023 13:31:31
--- OUTSIDE RECORDS SUMMARY | 2024-09-07 14:10 | XMS_ITS | CONTINUITY OF CARE DOCUMENT ---
Author Name ju, ju Address Unknown Organization [facility] Address [address] [facility] [address] [place] [address] Phone [phone] Care Team Providers Care Biological Chemist Name Role Phone Lenard GRESHAM, Tommy Unavailable CYRIL CEDILLO MD Unavailable CYRIL CEDILLO MD Unavailable PROBLEMS Condition Status Date Provider Notes Obesity completed - Tommy Weinberg MD Atrial fibrillation Paroxysmal active Tommy Weinberg MD Tobacco abuse active Shanel mcgarry MD Elevated blood pressure completed - Tommy Weinberg MD COPD active Tommy Weinberg MD Atrial flutter completed - Tommy Weinberg MD RIGO--moderate wants to try Inspire active Tommy Weinberg MD States he is claustrophobic and cant tolerate a mask HTN essential active Tommy Weinberg MD Shortness of breath active Tommy Weinberg MD ENCOUNTERS Date Type Provider Location Encounter Diag nosis - In-person encounter Office Visit Tommy Weinberg MD [facility] ObesityAtrial fibrillation ParoxysmalElevated blood pressureCOPDAtrial flutterOSA--moderate wants to try InspireHTN essentialShortness of breath - In-person encounter Office Visit Tommy Weinberg MD [facility] - In-person encounter Office Visit Shanel Savage MD [facility] - In-person encounter Office Visit Shanel Savage MD [facility] Atrial fibrillation ParoxysmalTobacco abuseCOPD VITAL SIGNS Date Observation Value Provider Body Mass Index (Ratio) 30.51 kg/m2 Pola Weinberg MD blood pressure, diastolic 90 mm[Hg] Li nkLogic blood pressure, systolic 131 mm[Hg] Susan kLogic pulse rate 82 /min Abraham y blood pressure, cuff size regular Ja rret blood pressure, diastolic 90 mm[Hg] Ja rret blood pressure, systolic 131 mm[Hg] Jar ret weight E&M 225 [lb_av] Abraham y respiratory rate E&M 12 /min Abraham oxygen saturation, oximetry 98 % Abraham height E&M 72 [in_i] Abraham y Body Mass Index (Ratio) 28.88 kg/m2 Pola Weinberg MD blood pressure, diastolic 91 mm[Hg] Li nkLogic blood pressure, systolic 144 mm[Hg] Susan kLogic blood pressure, diastolic 91 mm[Hg] Sa ra Church blood pressure, systolic 144 mm[Hg] Liset a Church oxygen saturation, oximetry 96 % Debbie Church respiratory rate E&M 18 /min Debbie Si ms pulse rate 94 /min Debbie Church blood pressure, cuff size regular Sa ra Church weight E&M 213 [lb_av] Debbie Church height E&M 72 [in_i] Debbie Church Body Mass Index (Ratio) 31.87 kg/m2 Lance Montez blood pressure, resting No Trace Mann blood pressure, diastolic 72 mm[Hg] Ollie Mann blood pressure, systolic 110 mm[Hg] Fadia Mann oxygen saturation, oximetry 98 % Cheyanne Mann respiratory rate E&M 16 /min Cheyanne Mann pulse rate 90 /min Cheyanne Mann blood pressure, cuff size regular Ollie Mann weight E&M 235 [lb_av] Cheyanne Mann height E&M 72 [in_i] Cheyanne Robleroby ALLERGIES No Known Drug Allergies RESULTS Date Observation Value Provider Reference Range Interpretation Location coagulation managed by Leonidas Mcrae RN international normalized ratio (INR) 1.0 Shefali Galeas Normal prothrombin time (patient) 12.4 s Shefali Galeas HISTORY OF MEDICATION USE Medication Status Instructions Dates Provider Indications Com ments metoprolol succinate 50 mg tablet extended release 24 hr active TAKE 1 TABLET BY MOUTH EVERY DAY Mariluz Rushi metoprolol succinate 50 mg tablet extended release 24 hr completed Take 1 tablet by mouth once a day - Mariluz Rushing metoprolol succinate 50 mg tablet extended release 24 hr completed TAKE 1 TABLET BY MOUTH EVERY DAY - Shaheen Gustafson Xarelto 20 mg tablet active Take 1 tablet by mouth once a day Nadira Lunsford RN metoprolol succinate 50 mg tablet extended release 24 hr completed Take 1 tablet by mouth once a day - Shaheen Gustafson SOCIAL HISTORY Date Observation Value Provider social history reviewed E&M revi ewed - no changes required Shaheen Gustafson social history E&M S moking History: P atient currently smokes every day. Shaheen Gustafson social history reviewed E&M revi ewed - no changes required Shaheen Hopkinsbang smoking history, tot al pack/day 1/2 Debbie Church cigarette use yes Debbie Church smoking status Current every day smoker S bethnay Church smoking history, tot al pack/year 35 Shaheen Roxannecyndee social history reviewed E&M revi ewed - no changes required Owen Melida social history E&M Smoking Histo ry: P atyosi currently smokes every day. P atyosi has been counseled to quit. Owen Montez smoking, date started 1986 Marianne Cornejo alcohol use, average drinks per day 2 /d Owen [facility] alcohol use, type beer Owen [facility] alcohol use yes [facility]/tobacco cess ation, patient education and counseling yes Owen [facility] number of grandchildren Shanel Mann number of years as a smoker 30 a Cheyanne Mann smoking history, tot al pack/day 1/2 Owen Montez cigarette use yes Cheyanne Mann smoking status Current every day smoker Camacho easley Johnathan FAMILY HISTORY Family Member Condition Father Family History of Co ngestive Heart Failure: INSURANCE PROVIDERS Payer name Policy type / Coverage type [facility] [id number] ADVANCE DIRECTIVES Name Date DISCUSSED - NO DECISION MADE TREATMENT PLAN Date Name Performer [id number],S, Sahheen Roxannehilary i [id number],S, Shaheen Roxannehilary i [id number],S, Shaheen Roxannehilary i [id number],S, Shaheen Roxannehilary i [id number],S Shaheen Roxannehilary i [id number],W, Tommy Weinberg MD [id number],S, Shaheen Ahmedza i [id number],S, Shaheen Ahmedza i [id number],S, Shaheen Ahmedza i [id number],S, Shaheen Ahmedza i [id number],S, Shaheen Ahmedza i Cardiology Shaheen Ahmedzai Cardiology Shaheen Ahmedzai Cardiology Shaheen Ahmedzai Cardiology Shaheen Ahmedzai Cardiology Shaheen Ahmedzai Cardiology Tommy Weinberg MD Cardiology Shaheen Ahmedzai Cardiology Shaheen Ahmedzai Cardiology Shaheen Ahmedzai Cardiology Shaheen Ahmedzai Cardiology Shaheen Ahmedzai EP faxed 08/11/16:STR ONGLY ENCOURAGED TO STOP SMOKING; SMOKING CESSATION TECHNIQUES DISCUSSED. Orders: F VC - [id number] ([id number]) F RC - [id number] ([id number]) D LCO - 27819 ([id number]) [facility] EP faxed 08/11/16:Ord ers: E KG (CPT-04207) C omplete Echo (CPT-05856) T EE - GC (*) C ardioversion - GC (CPT-74792) M obile Cardiac Tele (CPT-86439) Starting today: Eliquis 5 Mg Tabs (Apixaban) .... One tablet twice daily Magnesium Oxide 400 Mg Oral Tabs (Magnesium oxide) .... Two tablets twice daily Owen Milnerberg Date Name Complete Echo Holter Monitor 48 hr Holter Monitor 48 hr Sleep Study Home Complete Echo Mobile Cardiac Tele BASIC METABOLIC PANE L W/EGFR PROTHROMBIN TIME WIT H INR Cardioversion - GC ADAM - GC Complete Echo Mobile Cardiac Tele DLCO - 62601 FRC - 85281 FVC - 43794 HISTORY OF PROCEDURES Procedure Date Procedure Name Provider Procedure Notes S tatus EKG Tommy Weinberg MD completed EKG Tommy Weinberg MD completed Event Monitor Neha Valentin completed BLOOD COUNT HEMOGLOBIN Shanel saini MD completed FVC - 76767 Shanel ko MD completed FRC - 73319 Shanel ko MD completed DLCO - 22844 Shanel ko MD completed Protime Shanel ko MD completed SNOMED-CT: [id number] Smoking Cessation Counseling Shanel Savage MD completed EKG Shanel ko MD completed SNOMED-CT: [id number] Current Medications Documented Shanel Savage MD completed
== END 2024-09-07 13:56 | disposition home or self-care (01) ==
LOC: ANHIMG 14:07
PROVIDERS: PCP Internal Medicine; Visit Provider Internal Medicine
DX: M79.641 Pain in right hand (principal)
CPT/HCPCS: 73130

== ENCOUNTER 2025-01-25 16:47 | Outpatient (CLI) | payer OTHER, SELFPAY ==
--- NOTE | ~2025-01-25 | CT_ITS ---
EXAMINATION: CT lung screening DATE: 01/25/2025 17:07 INDICATION: Nicotine dependence TECHNIQUE: Computed tomography (CT) of the chest was performed without intravenous contrast. The dose-length product was 175.08 mGy-cm. Automated exposure control and iterative reconstruction technique were employed. COMPARISON: None FINDINGS: Heart size normal. No significant pleural or pericardial effusion. There are calcified granulomas of the spleen. No thoracic lymphadenopathy. There is atherosclerosis of the aorta and coronary arteries. No focal consolidation. No endobronchial lesions. No pneumothorax. There is lingular atelectasis. No focal pulmonary nodules or masses. Mild thoracic spondylosis. IMPRESSION: 1. Lung-RADS category 1: Negative. Continue annual screening with noncontrast low-dose chest CT in 12 months. Reviewed, dictated and finalized at location O. IMPRESSION: 1. Lung-RADS category 1: Negative. Continue annual screening with noncontrast l ow-dose chest CT in 12 months.
== END 2025-01-25 16:48 | disposition home or self-care (01) ==
PROVIDERS: PCP Internal Medicine; Visit Provider Internal Medicine
DX: Z12.2 Encounter for screening for malignant neoplasm of respiratory organs (principal); Z87.891 Personal history of nicotine dependence
CPT/HCPCS: 71271